=== PATIENT | female | born 1975 | race African-American/Black ===

== ENCOUNTER 2017-08-11 14:12 | Outpatient (CLI) | payer OTHER ==
--- NOTE | 2017-08-11 15:56 | MRI ---
MR ANGIOGRAM [place] OF [place]: HISTORY: Evaluate aneurysm. Aneurysm coil placement. COMPARISON: 07/30/15. TECHNIQUE: MR angiogram of the [place] is performed in the axial plane utilizing 3D [id number] imag ing. Maximum intensity projection images are submitted for interpretation. FINDINGS: Symmetric flow-related signal in the distal cervical internal carotid arteries. Symmetric flow-relat ed signal in the petrous segment of both internal carotid arteries. There is evidence of blooming se condary to a coil mass. Obvious aneurysm is not appreciated. Both cavernous segments are unremarkab le. There is symmetric flow-related signal in both A1 and M1 segments. Proximal A2 segments and proximal MCA branches are unremarkable. Posterior circulation is unchanged. No evidence of aneurysm. IMPRESSION: Stable artifact due to coil mass associated. Based on the current exam, no evidence of recurrence. 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
== END 2017-08-11 14:13 | disposition home or self-care (01) ==
LOC: SCSMRI 14:12
PROVIDERS: ATTEND Neurological Surgery
DX: I67.1 Cerebral aneurysm, nonruptured (principal)
CPT/HCPCS: 70544

== ENCOUNTER 2025-01-19 09:05 | Day surgery (SDC) | payer BC ==
[2025-01-18 12:11] VITALS: BMI 29.6
[2025-01-19] MEDS ORDERED: Vancomycin 1 GM/200 ML (FROZEN) BAG ONE (12:28)
[2025-01-19] MEDS ORDERED: fentaNYL PF 100 MCG/2 ML SYRINGE ONE (13:45)
[2025-01-19] MEDS ORDERED: Lidocaine 1% PF 5 ML VIAL ONE (13:45)
[2025-01-19] MEDS ORDERED: Ondansetron PF 4 MG/2 ML Vial ONE (13:45)
[2025-01-19] MEDS ORDERED: PHENYLEPHRINE-NS 100 MCG/ML 10 ML SYRINGE ONE (14:15)
[2025-01-19] MEDS ORDERED: PROPOFOL 200 MG/20 ML VIAL ONE (14:15)
[2025-01-19] MEDS ORDERED: Glycopyrrolate 0.2 MG/ML 5 ML SYRINGE ONE (14:15)
== END 2025-01-19 17:38 | disposition home or self-care (01) ==
LOC: SDC 09:05
PROVIDERS: ATTEND Orthopaedic Surgery Hand Surgery
PROC: 0RBN0ZZ Excision of Right Wrist Joint, Open Approach (ICD-10-PCS; principal; 2025-01-19)
DX: M67.431 Ganglion, right wrist (principal); I10 Essential (primary) hypertension; Z98.890 Other specified postprocedural states; Z88.0 Allergy status to penicillin
CPT/HCPCS: 88304; A6223; J1100; J2405; J2704; J3010; J3373